=== PATIENT | female | born 1960 | race Caucasian/White ===

== ENCOUNTER → 2020-02-19 15:35 | Outpatient (BNVA) | payer BC, SELFPAY | PROVIDERS: Family Provider Internal Medicine; PCP Nurse Practitioner Family; Referring Provider Nurse Practitioner Family; Visit Provider Nurse Practitioner Family | DX: R39.15 Urgency of urination (principal); N39.0 Urinary tract infection, site not specified | CPT/HCPCS: 80053 ==

== ENCOUNTER 2020-03-05 07:29 | Outpatient (CLI) | payer BC, SELFPAY ==
--- NOTE | 2020-03-05 08:00 | US_ITS ---
WS: [id number] Bilateral renal ultrasound, 03/05/2020 Clinical Data: RECURRENT UTI Comparison: Abdomen ultrasound, 12/26/2018. Findings: The right kidney measures 10.0 cm x 4.4 cm x 3.6 cm and the left kidney is 10.5 cm x 4.1 cm x 4.5 cm. There are no cysts, masses or hydronephrosis. The renal cortical margin is normal. No renal calculi are seen. The abdominal aorta and inferior vena cava show no vascular abnormalities. The bladder was scanned and was not remarkable. US/US renal BI with bladder Impression: Negative bilateral renal ultrasound.
--- NOTE | 2020-03-05 08:45 | US_ITS ---
WS: [id number] Pelvic ultrasound, 03/05/2020 Clinical Data: RECURRENT UTI Comparison: Pelvic ultrasound, 08/03/2016. Findings: The uterus measures 6.15 cm x 3.1 cm x 2.3 cm. The endometrium is 0.3 cm. No intrauterine or abnormal intrauterine mass is seen. The ovaries were not imaged. There was no fluid in the cul-de-sac. US/US pelvic with transvaginal Impression: 1. Ovary is not imaged. 2. Negative uterus.
== END 2020-03-05 07:30 | disposition home or self-care (01) ==
LOC: US 07:30
PROVIDERS: PCP Internal Medicine; Visit Provider Nurse Practitioner Family
DX: N39.0 Urinary tract infection, site not specified (principal)
CPT/HCPCS: 76770; 76830; 76856; 76857; 81001

== ENCOUNTER 2020-04-26 16:31 | Outpatient (CLI) | payer BC, SELFPAY ==
--- NOTE | 2020-04-26 16:39 | XR_ITS ---
WS: [id number] Exam: XR cervical spine 3V* [id number] Date/Time of Exam: 04/26/2020 4:40 PM Reason For Exam: NECK PAIN Comparison 12/27/2011. No fracture or dislocation noted. Mild facet DJD at all levels. Disc spaces are relatively well maint ained. Paraspinal soft tissues appear normal. The odontoid is intact. Osteopenia. XR/XR cervical spine 3V* [id number] IMPRESSION: 1. Mild facet DJD and osteopenia. 2. No fracture or malalignment.
== END 2020-04-26 16:32 | disposition home or self-care (01) ==
LOC: RAD 16:36
PROVIDERS: PCP Internal Medicine; Visit Provider Nurse Practitioner Family
DX: R51.9 Headache, unspecified (principal); M47.812 Spondylosis without myelopathy or radiculopathy, cervical region; M85.88 Other specified disorders of bone density and structure, other site
CPT/HCPCS: 72040

== ENCOUNTER 2020-05-04 11:30 | Outpatient (CLI) | payer BC, SELFPAY ==
--- NOTE | 2020-05-04 11:32 | MM_ITS ---
WS: [id number] SCREENING DIGITAL MAMMOGRAM WITH CAD HISTORY: SCREENING COMPARISON: 11/19/2018 and 08/16/2017 Bilateral CC and MLO views submitted. Computer aided detection analyzed. Breast composition: There are scattered areas of fibroglandular density. No suspicious masses, microc alcifications or architectural distortion. MM/[place] [id number] IMPRESSION: BI-RADS: 1-Negative FOLLOW UP: 1 Year Follow-up
== END 2020-05-04 11:31 | disposition home or self-care (01) ==
LOC: RADSHAW 11:30
PROVIDERS: PCP Internal Medicine; Visit Provider Nurse Practitioner Family
DX: Z12.31 Encounter for screening mammogram for malignant neoplasm of breast (principal)
CPT/HCPCS: 77067

== ENCOUNTER → 2020-09-15 13:37 | Outpatient (BNVA) | payer OTHER, SELFPAY | PROVIDERS: PCP Internal Medicine; Visit Provider Nurse Practitioner Family | DX: N39.0 Urinary tract infection, site not specified (principal) | CPT/HCPCS: 81003 ==

== ENCOUNTER 2021-04-25 10:03 | Outpatient (CLI) | payer OTHER, SELFPAY ==
--- NOTE | 2021-04-25 10:15 | US_ITS ---
WS: [id number] ULTRASOUND ABDOMEN LIMITED CLINICAL INFORMATION: EPIGASTRIC RUQ ABD PAIN COMPARISON: None. FINDINGS: Liver Size: Normal. Craniocaudal length: 15.1 cm. Echogenicity: Normal. Surface nodularity: None. Mass (size and location): None. Bile ducts Intrahepatic ducts: Normal. Common bile duct diameter: 0.4 cm. Gallbladder Normal. Gallstones: None. Gallbladder sludge: None. Gallbladder wall thickening: None. Pericholecystic fluid: None. Sonographic Dominique sign: Absent. Pancreas Not well seen due to bowel gas Right kidney: Normal. Hydronephrosis: None. Size: 11.0 cm x 4.5 cm x 4.1 cm. Abdominal aorta and IVC Visualized portions are normal. Ascites: None. US/US abdomen limited [id number] IMPRESSION: 1. Normal liver. 2. Normal gallbladder. No cholelithiasis. 3. No hydronephrosis in right kidney. 4. No ascites.
== END 2021-04-25 10:04 | disposition home or self-care (01) ==
LOC: RAD 10:08
PROVIDERS: PCP Internal Medicine; Visit Provider Internal Medicine
DX: R10.11 Right upper quadrant pain (principal); R10.13 Epigastric pain
CPT/HCPCS: 76705; 93976

== ENCOUNTER → 2021-09-07 10:32 | Outpatient (BNVA) | payer OTHER, BC, SELFPAY | PROVIDERS: PCP Internal Medicine; Referring Provider Internal Medicine; Visit Provider Podiatrist Foot & Ankle Surgery | DX: M79.671 Pain in right foot (principal); M79.672 Pain in left foot | CPT/HCPCS: 73630 ==

== ENCOUNTER 2021-09-14 08:18 | Outpatient (CLI) | payer BC, MEDICAID, SELFPAY ==
--- NOTE | 2021-09-14 08:22 | MM_ITS ---
WS: [id number] BILATERAL 3D TOMOSYNTHESIS DIGITAL SCREENING MAMMOGRAPHY WITH CAD CLINICAL INFORMATION: SCREENING HISTORY: Screening mammogram. RIGHT breast pain. COMPARISON: May 04, 2020 TECHNIQUE: Bilateral CC and MLO views. FINDINGS: Scattered fibroglandular densities bilaterally. No suspicious focal mass, asymmetry, calcifications, or architectural distortion. No evidence of malignancy. MM/[place] [id number] IMPRESSION: BI-RADS: 1-Negative FOLLOW UP: 1 Year Follow-up Recommend return to annual screening mammography.
== END 2021-09-14 08:19 | disposition home or self-care (01) ==
LOC: RAD 08:19
PROVIDERS: PCP Internal Medicine; Visit Provider Internal Medicine
DX: Z12.31 Encounter for screening mammogram for malignant neoplasm of breast (principal)
CPT/HCPCS: 77063; 77067; 81003

== ENCOUNTER 2021-12-16 05:40 | Day surgery (SDC) | payer BC, MEDICAID, SELFPAY ==
[2021-12-15 13:00] VITALS: BMI 21.2
[2021-12-16] VITALS (7 sets, daily range): BP systolic 106–132; BP diastolic 62–75; PULSE 71–84; RESP 16–17; TEMP 36.6–37.2; O2SAT 95–99
[2021-12-16] MEDS: sodium chloride 0.9% 1,000 ML 30 ML IV (06:23)
[2021-12-16] MEDS: CELEcoxib 200 mg Capsule 400 MG PO (06:24)
--- NOTE | 2021-12-16 06:40 | P.HP_ITS ---
Providers/Chief Complaint Primary Care Provider: Melany Henao MD History of Present Illness Pleasant 61-year-old female has had progressive pain at bilateral feet right more severe than left. Bossing at the calcaneocuboid joint bilaterally is painful with and without shoes also has a fluid-filled cyst at her right foot she is wishing to have surgical excised as this causes pain when she wear shoes. She has tried different lacing configurations, different fitting and configuration of shoe styles without improvement. Has tried activity modification as well as NSAIDs without relief. Has pain on a daily basis. Patient denies any subjective nausea, vomiting, fever, chills, shortness of breath or chest pain. Review of Systems General: Reports: 10 or more systems reviewed and unremarkable except in HPI and below Const: Denies: fever(s) or chills Eyes: Denies: change in vision Card: Denies: chest pain or palpitations Resp: Denies: dyspnea or productive cough GI: Denies: abdominal pain, nausea or vomiting : Denies: flank pain Musc: Reports: extremity pain Skin/Breast: Denies: rash Neuro: Denies: numbness in extremities, sensory changes or frequent falls Psych: Denies: suicidal ideation Riccardo/Lymph: Denies: easy bruising Medications/Allergies Home Medications Medication Instructions Recorded Confirmed Last Taken Type ascorbic acid (vitamin C) 125 mg 125 mg PO DAILY 09/07/21 12/16/21 12/15/21 History chewable tablet (Vitamin C) calcium carbonate 600 mg-vitamin 1 cap PO DAILY cap 09/07/21 12/16/21 12/15/21 History D3 12.5 mcg (500 unit) capsule (Calcium 600 with Vitamin D3) melatonin 3 mg tablet (Melatin) 3 mg PO BEDTIME 09/07/21 12/16/21 12/15/21 History multivitamin with iron (Daily 1 tab PO DAILY 09/07/21 12/16/21 12/15/21 History Multiple Vitamins/Iron) omeprazole 40 mg capsule,delayed 40 mg PO DAILY 12/15/21 12/16/21 12/15/21 History release vitamins-lipotropics 200 mg-100 mg 1 tab PO DAILY 12/15/21 12/16/21 12/15/21 History tablet (Lipo-Flavonoid Plus) Allergies Allergy/AdvReac Type Severity Reaction Status Date / Time No Known Allergies Allergy Verified 12/15/21 12:57 PFSH PFSH: Medical History (Updated 12/16/21 @ 06:45 by Anderson Forbes DPM) Personal history of malignant neoplasm of cervix uteri HAD IT REMOVED Recurrent UTI Urgency incontinence Surgical History Hx of section Family History Father Cancer Diabetes Mother Stroke Social History Smoking and tobacco status: never smoked Alcohol intake: never Adopted: No Caregiver/support person: No Lives independently: Yes Marital status: Current occupational status: employed Vital Signs Vitals Signs: Last Vital Signs Temp 99 F 12/16/21 06:08 Pulse 81 12/16/21 06:08 Resp 16 12/16/21 06:08 BP 132/63 12/16/21 06:08 Pulse Ox 95 12/16/21 06:08 Weight: Weight last 48 hrs Weight 120 lb Physical Exam Narrative: EXAM NARRATIVE: Patient is alert and oriented ?3 and in no acute distress.? The following is a focused bilateral lower extremity exam. VASCULAR: Dorsalis pedis +2 bilaterally, posterior tibial arteries +2.? Capillary refill time less than 3 seconds to the distal hallux bilaterally. Calf is supple and nontender proximally and distally.? No pedal edema.? Pedal hair gr owth present. NEUROLOGICAL: Protective sensation intact to light touch. DERMATOLOGICAL: Lower extremity skin is well-hydrated, normal texture and turgor.? There are no open sores or lesions noted to the lower extremities.? No erythema or ecchymosis present to the bilateral legs and feet. MUSCULOSKELETAL: Osseous prominence at the anterior process of the calcaneus that is tender to palpation near the sinus tarsi left and right foot right more severe.? No crepitus with right subtalar joint range of motion, 20 degrees inversion and 10 degrees of eversion at the subtalar joint bilaterally.? Soft t issue mass at the dorsum of the right and left midfoot adjacent to the peroneus tertius right and left foot.? Muscle strength 5 out of 5 in all 3 planes to the bilateral foot and ankle.? Soft tissue mass transilluminates left and right foot. A&P Assessment and plan (1) Exostosis: Status: Acute (2) Right foot pain: Status: Acute (3) Ganglion of foot, right: Status: Acute Plan Clinically there is a bony exostosis at the anterior process of the calcaneus that is painful to palpation bilaterally.? She also has a soft tissue mass consistent with ganglion cyst at the extensor tendons of the left and right foot that are also painful.? Patient would like to discuss surgical excision of these masses and exostosis.? I discussed recurrence rate of both as well as recovery time.? Patient will continue with wide accommodative shoes with alternative lacing configuration to not apply pressure directly over these painful locations.? Bossing at the calcaneocuboid joint bilaterally is painful with and without shoes also has a fluid-filled cyst at her right foot she is wishing to have surgical excised as this causes pain when she wear shoes. She has tried different lacing configurations, different fitting and configuration of shoe styles without improvement. Has tried activity modification as well as NSAIDs without relief. Has pain on a daily basis. Risks and bruising and chronic swelling, reoccurrence of both soft tissue mass and exostosis/bossing. Need for further surgical invention. 12/16/2021 outpatient, MAC anesthesia excision of exostosis and soft tissue mass right foot. 30, supine, 30 minutes. Coding Level of Care Code Acute Senior Product Development Manager for Nain Mccormick Diagnoses Exostosis M89.8X9 Right foot pain M79.671 Ganglion of foot, right M67.471
--- NOTE | 2021-12-16 06:40 | W.PM.OPSUD ---
Surgery/Procedure H&P Update DATE OF PROCEDURE: December 16, 2021 DATE H&P PERFORMED: 12/16/21 CHANGES TO PREVIOUS DOCUMENTATION: None PREOP DIAGNOSIS: Calcaneal exostosis and ganglionic cyst right foot PLANNED PROCEDURE: Operation Date: 12/16/21 07:00 Proposed Procedures p Exostectomy and soft tissue mass excision right foot 25808, 77677,M79.89,M89.8x7(Right) - Anderson Forbes DPM
--- NOTE | 2021-12-16 06:50 | ANES.PREANE2 ---
Pre-Anesthetic Assessment Height/Weight: Height 1.6 m Weight 54.431 kg Temp Pulse Resp BP Pulse Ox 99 F 81 16 132/63 95 12/16/21 06:08 12/16/21 06:08 12/16/21 06:08 12/16/21 06:08 12/16/21 06:08 Preop Diagnosis: Calcaneal exostosis and ganglionic cyst right foot Operation Date: 12/16/21 07:00 Proposed Procedures p Exostectomy and soft tissue mass excision right foot 17344, 72478,M79.89,M89.8x7(Right) - Anderson Forbes DPM Familial anesthetic complications: none Was Beta Shannan taken within 24 hours: N/A Was Clonidine taken within 24 hours: N/A Last intake: Intake Last Liquid Date 12/15/21 Last Liquid Time 22:00 Last Solid Date 12/15/21 Last Solid Time 18:00 Social No alcohol and No tobacco Exam alert, oriented x 3, clear to auscultation bilaterally and regular rate & rhythm Airway Submandibular: within normal limits Cervical ROM: within normal limits Mallampati: Class II Dentition: chipped History/ROS Other Pulmonary Asthma CV/HEM None reported Urinary Tract Infection (frequent) Hepatic None reported GI Gastroesophageal Reflux Disease (controlled) Metabolic Hyperlipidemia [facility] [place] Fibromyalgia, Lower Back Pain and Osteoarthritis/DJD Neuropsych Depression Anesthetic Plan ASA status: 2 Anesthesia: MAC Risk of > 500 ml blood loss (7ml/kg in children): No Medications/Allergies Home Medications Medication Instructions Recorded Confirmed Last Taken Type ascorbic acid (vitamin C) 125 mg 125 mg PO DAILY 09/07/21 12/16/21 12/15/21 History chewable tablet (Vitamin C) calcium carbonate 600 mg-vitamin 1 cap PO DAILY cap 09/07/21 12/16/21 12/15/21 History D3 12.5 mcg (500 unit) capsule (Calcium 600 with Vitamin D3) melatonin 3 mg tablet (Melatin) 3 mg PO BEDTIME 09/07/21 12/16/21 12/15/21 History multivitamin with iron (Daily 1 tab PO DAILY 09/07/21 12/16/21 12/15/21 History Multiple Vitamins/Iron) omeprazole 40 mg capsule,delayed 40 mg PO DAILY 12/15/21 12/16/21 12/15/21 History release vitamins-lipotropics 200 mg-100 mg 1 tab PO DAILY 12/15/21 12/16/21 12/15/21 History tablet (Lipo-Flavonoid Plus) Allergies Allergy/AdvReac Type Severity Reaction Status Date / Time No Known Allergies Allergy Verified 12/15/21 12:57 Current Medications Generic Name Dose Route Start Last Admin Trade Name Cjq PRN Reason Stop Dose Admin Sodium Chloride 1,000 mls @ 30 mls/hr 12/16/21 06:00 12/16/21 06:23 Sodium Chloride 0.9% IV 12/17/21 05:59 30 mls/hr .Q24H IVONE Administration PFSH Anesthesia Medical History (Updated 12/16/21 @ 06:45 by Anderson Forbes DPM) Personal history of malignant neoplasm of cervix uteri HAD IT REMOVED Recurrent UTI Urgency incontinence Surgical History Hx of section Family History Father Cancer Diabetes Mother Stroke Social History Smoking and tobacco status: never smoked Alcohol intake: never Adopted: No Caregiver/support person: No Lives independently: Yes Marital status: Current occupational status: employed Data Anesthesia Cardiac Studies: No Data to Display
--- NOTE | 2021-12-16 06:56 | PM.OP ---
Operative Report Date of procedure: December 16, 2021 Pre-op diagnosis: Calcaneal exostosis and ganglion cyst right foot Post-op diagnosis: Calcaneal x-ray and dorsal navicular exostosis right foot Post-op findings: Exostosis calcaneal process and dorsum of the talar head Procedure done: Exostectomy right calcaneus. CPPT 30489 Exostectomy right talus. CPT 59340 Implants: 4-0 Vicryl, 4-0 nylon Specimens removed/disposition: Bony exostosis to waist Pathology: None Surgeon: Anderson Forbes D.P.M. Consumer Insights Specialist: Mac Estimated blood loss: 5 24 IV fluids: 0 Urine output: 0 Complications: None Findings: Dorsal bossing at the right anterior process of the calcaneus. Exostosis at the right dorsal navicular head. Brief History: Clinically there is a bony exostosis at the anterior process of the calcaneus that is painful to palpation bilaterally.? She also has a soft tissue mass consistent with ganglion cyst at the extensor tendons of the left and right foot that are also painful.? Patient would like to discuss surgical excision of these masses and exostosis.? I discussed recurrence rate of both as well as recovery time.? Patient will continue with wide accommodative shoes with alternative lacing configuration to not apply pressure directly over these painful locations.? Bossing at the calcaneocuboid joint bilaterally is painful with and without shoes also has a fluid-filled cyst at her right foot she is wishing to have surgical excised as this causes pain when she wear shoes.? She has tried different lacing configurations, different fitting and configuration of shoe styles without improvement.? Has tried activity modification as well as NSAIDs without relief.? Has pain on a daily basis.? Risks and bruising and chronic swelling, reoccurrence of both soft tissue mass and exostosis/bossing.? Need for further surgical invention. Procedure: Under mild sedation the patient was brought to the operating room and remained on the gurney in supine position. A timeout was performed. Anesthesia was then administered by the anesthesia service. Local anesthesia was injected by myself consisting of one-to-one mixture 1% lidocaine and 0.25% Marcaine plain in a right ankle block fashion. 20 mL used. Well-padded pneumatic tourniquet was applied to the right ankle. Right lower extremity was then scrubbed, prepped and draped utilizing normal aseptic technique and the right foot was exanguinated with an Esmarch bandage and the tourniquet inflated to 250 mmHg. Attention was directed to the dorsal lateral aspect of the right foot where a osseous prominence was palpated at the dorsal aspect of the right anterior calcaneal process. Curvilinear incision was made with a #15 blade directly over the prominence with dissection carried down through subcutaneous tissue to the layer of periosteum utilizing a combination of sharp and blunt technique. Care was taken to retract and preserve neurovascular and tendinous structures. All bleeders were ligated and cauterized as necessary. Bony exostosis was appreciated, this was transected utilizing an osteotome and a mallet with all rough edges smoothed with a hand rasp. Incision was flushed with saline solution and closed in a layered fashion. 4-0 Vicryl retinaculum and periosteum as well as subcutaneous tissue. 4-0 nylon at skin. Attention was then directed to the dorsal aspect of the right talonavicular joint where a prominence was palpated. Directly over the prominence a linear longitudinal incision was made through skin with a #15 blade with dissection carried down through subcutaneous tissue and periosteum utilizing accommodation of sharp and dull technique. Periosteal incision was made, no ganglion cyst was encountered. I appreciated a osseous exostosis at the dorsal aspect of the right talar head this was transected with a osteotome and mallet with all rough edges smoothed utilizing a hand rasp. Incision was flushed with saline solution. Capsule, periosteum and subcutaneous tissue closed with 4-0 Vicryl. Skin closed with 4-0 nylon. Incision sites were then dressed with Adaptic, sterile 4 x 4, Kerlix, Francisco Javier wrap and a postop shoe was applied. Tourniquet was deflated and a prompt hyperemic response was noted to the distal digits of the right foot. Patient tolerated the procedure and anesthesia well and was transferred to the PACU with vital signs stable and vascular status intact. Following a period of postoperative monitoring she will be discharged home may be weightbearing as tolerated with a postop shoe is to elevate her right foot while resting. Has follow-up appointment scheduled in podiatry clinic for nurse visit and her for surgical dressing change next week. She was provided my cell phone number to contact me with any postoperative questions or concerns.
[2021-12-16] MEDS: lidocaine 2% INJ 20 mL INJECTION (07:10)
--- NOTE | 2021-12-16 12:18 | ANE.PACU2 ---
Inpatient post-anesthesia follow up: Airway intact: Yes Vital signs: Temperature 98 F Pulse Rate 75 Respiratory Rate 17 Blood Pressure 106/64 Pulse Oximetry 99 Oxygen Delivery Me thod Room Air Oxygen Flow Rate Fraction of Inspir ed Oxygen Hydration adequate: Yes Nausea and vomiting: No Pain level: 2 Mental status: Baseline
== END 2021-12-16 08:35 | disposition home or self-care (01) ==
PROVIDERS: PCP Internal Medicine; Visit Provider Podiatrist Foot & Ankle Surgery
PROC: (CPT 28288; principal; 2021-12-16 07:00)
DX: M89.8X7 Other specified disorders of bone, ankle and foot (principal); M67.471 Ganglion, right ankle and foot; K21.9 Gastro-esophageal reflux disease without esophagitis; E78.5 Hyperlipidemia, unspecified; M79.7 Fibromyalgia; F32.9 Major depressive disorder, single episode, unspecified; Z85.42 Personal history of malignant neoplasm of other parts of uterus
CPT/HCPCS: 27630; 28288; J0690; J2370; J2405; J2704; J3010; J3490; J7030

== ENCOUNTER → 2021-12-28 08:33 | Outpatient (BNVA) | payer BC, MEDICAID, SELFPAY | PROVIDERS: PCP Internal Medicine; Visit Provider Podiatrist Foot & Ankle Surgery | DX: Z98.890 Other specified postprocedural states (principal) | CPT/HCPCS: 73630; 99024 ==

== ENCOUNTER → 2022-01-26 13:13 | Outpatient (BNVA) | payer BC, MEDICAID, SELFPAY | PROVIDERS: PCP Internal Medicine; Visit Provider Podiatrist Foot & Ankle Surgery | DX: Z98.890 Other specified postprocedural states (principal) | CPT/HCPCS: 99024 ==

== ENCOUNTER 2022-06-29 07:39 | Outpatient (CLI) | payer BC, MEDICAID, SELFPAY ==
--- NOTE | 2022-06-29 | US_ITS ---
WS: [id number] RIGHT UPPER QUADRANT ULTRASOUND HISTORY: GAS PAIN/EPIGASTRIC PAIN COMPARISON: 04/25/2021 Liver: 13.3 cm in length. Normal size liver. No bile duct dilatation or mass. Portal Vein: Normal hepatopetal flow with monophasic waveform. Gallbladder: Normally distended gallbladder with no stones or wall thickening. CBD: 0.2 cm Pancreas: Normal size and echogenicity. Right kidney: 10.4 cm in length. Normal size and echogenicity. No hydronephrosis or mass. Aorta and IVC: Unremarkable abdominal aorta and IVC. No ascites. US/US abdomen limited [id number] IMPRESSION: Normal RIGHT upper quadrant ultrasound.
== END 2022-06-29 07:40 | disposition home or self-care (01) ==
LOC: RAD 07:41
PROVIDERS: PCP Internal Medicine; Visit Provider Internal Medicine
DX: R14.1 Gas pain (principal); R10.13 Epigastric pain
CPT/HCPCS: 76705

== ENCOUNTER → 2022-09-13 13:55 | Outpatient (BNVA) | payer BC, MEDICAID, SELFPAY | PROVIDERS: PCP Internal Medicine; Visit Provider Urology | DX: N39.0 Urinary tract infection, site not specified (principal) | CPT/HCPCS: 81003 ==

== ENCOUNTER 2023-04-10 14:54 | Outpatient (CLI) | payer BC, MEDICAID, SELFPAY ==
--- NOTE | 2023-04-10 15:00 | MM_ITS ---
WS: [id number] BILATERAL 3D TOMOSYNTHESIS DIGITAL SCREENING MAMMOGRAPHY WITH CAD CLINICAL INFORMATION: SCREENING HISTORY: Screening mammogram. No current complaints. COMPARISON: 09/14/2021 TECHNIQUE: Bilateral CC and MLO views. FINDINGS: Scattered fibroglandular densities bilaterally. No suspicious focal mass, asymmetry, calcifications, or architectural distortion. No evidence of malignancy. IMPRESSION: MM/[place] [id number] BI-RADS: 1-Negative FOLLOW UP: 1 Year Follow-up Recommend return to annual screening mammography.
--- NOTE | 2023-04-10 15:55 | MR_ITS ---
WS: [id number] MRI BRAIN WITH HIGH-RESOLUTION IMAGING THROUGH THE INTERNAL AUDITORY CANALS WITHOUT contrast. HISTORY: DIZZINESS/VISION CHANGES COMPARISON: 07/26/2018, 11/10/2009 TECHNIQUE: Multiplanar, multisequence imaging is performed through the brain. Additional 3 mm imaging performed in multiple planes through the internal auditory canal. No acute intracranial hemorrhage, midline shift, edema or mass effect. No restricted diffusion to suggest acute ischemia. There are a few tiny foci of T2 hyperintensity in the periventricular and subcortical white matter. No progression since the prior study. Posterior fos sa is normal. Normal hippocampal formation. Ventricles and extra-axial spaces are normal. No inferior displacement of cerebellar tonsils. Clivus and pituitary gland are normal. Internal and external auditory canals: Unremarkable. Cranial nerves VII and VIII complexes: Unremarkable. No mass effect or displacement. Normal signal. Cerebellopontine angles: Normal. Paranasal sinuses: Normal. Mastoid air cells: Normal. Calvarium and scalp: Normal. Visualized [place] of [place] and dural venous sinuses demonstrate no abnormality. Dominant LEFT verteb ral artery is normal variant. Normal flow voids. IMPRESSION: 1. No evidence of restricted diffusion or acute ischemia. 2. Minimal foci of T2 hyperintensity as described above, similar to 2009 and 2018. These findings can be seen with small vessel ischemic disease and migraines. 3. Normal temporal lobes and hippocampal formations.
== END 2023-04-10 14:55 | disposition home or self-care (01) ==
LOC: RAD 14:54
PROVIDERS: PCP Internal Medicine; Visit Provider Internal Medicine
DX: Z12.31 Encounter for screening mammogram for malignant neoplasm of breast (principal); R42 Dizziness and giddiness; H53.9 Unspecified visual disturbance
CPT/HCPCS: 70551; 77063; 77067

== ENCOUNTER 2024-10-01 13:30 | Outpatient (CLI) | payer OTHER, SELFPAY ==
--- NOTE | 2024-10-01 13:32 | MM_ITS ---
WS: [id number] BILATERAL 3D TOMOSYNTHESIS DIGITAL SCREENING MAMMOGRAPHY WITH CAD CLINICAL INFORMATION: SCREENING HISTORY: Screening mammogram. No current complaints. COMPARISON: 2022 TECHNIQUE: Bilateral CC and MLO views. FINDINGS: Scattered fibroglandular densities bilaterally. No suspicious focal mass, asymmetry, calcifications, or architectural distortion. No evidence of malignancy. MM/MM scr BI tomosynthesis [id number] IMPRESSION: DENSITY: There are scattered areas of fibroglandular density. BI-RADS: 1 - Negative. FOLLOW UP: 1 Year Follow-up Recommend return to annual screening mammography.
== END 2024-10-01 13:31 | disposition home or self-care (01) ==
PROVIDERS: PCP Internal Medicine; Visit Provider Internal Medicine
DX: Z12.31 Encounter for screening mammogram for malignant neoplasm of breast (principal); R92.323 Mammographic fibroglandular density, bilateral breasts
CPT/HCPCS: 77063; 77067

== ENCOUNTER 2024-11-27 12:39 | Emergency (ER) | payer OTHER, SELFPAY ==
[2024-11-27 12:40] VITALS: BP 115/73; PULSE 99; RESP 16; TEMP 36.7; O2SAT 97
--- NOTE | 2024-11-27 12:46 | ECG_ITS ---
[facility] Test Date: 2024-11-27 Pat Name: Annalise Neves Department: Room: Gender: Female Ticket Agent: : 1960 Requested By: Jim Valles Order Number: [id number] Zander MD: Jose M Hauser M.D. Measurements Intervals [place] Rate: 90 P: 67 PA: 152 QRS: 4 QRSD: 84 T: 42 QT: 329 QTc: 404 Interpretive Statements SINUS RHYTHM LOW QRS VOLTAGE IN PRECORDIAL LEADS [QRS DEFLECTION < 1.0 mV IN CHEST LEADS] No previous ECG available for comparison Electronically Signed On 11-27-2024 17:44:52 CDT by Jose M Hauser M.D. [id number]
--- NOTE | 2024-11-27 13:27 | ED_ITS ---
HPI - Abdominal Pain 2 General: Chief Complaint: Abdominal Pain Stated Complaint: gall bladder attack Time Seen by Provider: 11/27/24 13:25 History of Present Illness: 64-year-old female presents emergency ro om with complaint of intermittent abdominal pain. States she has had this intermittently for some time she says she is lost 10 pounds in 6 days. No dysuria urgency or frequency no vomiting. Her only pain at this time is in her low back. Evidently she had seen her primary care doctor and is scheduled for gallbladder ultrasound she denies any acholic stools no vomiting no diarrhea. Associated Symptoms: Reports nausea; Denies chills, dysuria, fever(s), hematochezia, hematemesis, melena and vomiting Related Data Home Medications ?Medication ?Instructions ?Recorded ?Confirmed ascorbic acid (vitamin C) 125 mg 125 mg PO DAILY 09/0711/27/24 chewable tablet (Vitamin C) calcium 600 mg (as 1 cap PO DAILY 09/07/2111/09 carbonate)-vitamin D3 12.5 mcg (500 unit) capsule (Calcium with Vit D3) vitamins-lipotropics 200 mg-100 mg 1 tab PO DAILY 12/3011/27/24 tablet (Lipo-Flavonoid Plus) melatonin 3 mg tablet 3 mg PO DAILY 11/27/2411/27 meloxicam 15 mg tablet 15 mg PO DAILY 11/27/2411/09 [id number] 8 mg-folic 400 1 tab PO DAILY 11/2711/27/24 mcg-K 50 mcg-lutein 300 mcg tablet (Multivitamin Women 50 Plus) Previous Rx's ?Medication ?Instructions ?Recorded diclofenac sodium 75 mg 75 mg PO Q12H PRN pain #20 t abs 11/27/24 tablet,delayed release Allergies Allergy/AdvReac Type Severity Reaction Status Date / Time No Known Allergies Allergy Verified 09/13/22 14:02 Review of Systems 2 Const: Denies: fever(s) or chills Card: Denies: chest pain Resp: Denies: dyspnea GI: Reports: abdominal pain and nausea; Denies: vomiting, hematemesis, hematochezia or melena : Reports: pelvic pain; Denies: dysuria, urinary frequency or urinary urgency Musc: Denies: neck pain or back pain Skin/Breast: Denies: rash [facility] 2 PFSH: Medical History Urgency incontinence Personal history of malignant neoplasm of cervix uteri HAD IT REMOVED Recurrent UTI Surgical History Hx of section Family History Father , AT AGE 79 Cancer Diabetes Stroke Mother , AT AGE 78 Stroke Social History Smoking and tobacco/nicotine status: never used tobacco/nicotine Alcohol intake: never Substance/Drug Use: never Adopted: No Caregiver/support person: No Lives independently: Yes Marital status: Current occupational status: employed Physical Exam 2 Const: COMMON NORMALS: no acute distress GENERAL APPEARANCE: cooperative and comfortable ORIENTATION/CONSCIOUSNESS: Yes awake, Yes oriented to person, Yes oriented to place and Yes oriented to time HENMT: COMMON NORMALS: normocephalic, atraumatic and hearing grossly normal bilaterally HEAD & SCALP: normocephalic and atraumatic Resp: COMMON NORMALS: normal respiratory effort, No retractions, No use of accessory muscles and clear to auscultation bilaterally AUSCULTATION: clear to auscultation bilaterally Cardio: COMMON NORMALS: regular rate, regular rhythm and No murmurs present (Cardio) RATE: regular rate RHYTHM: regular rhythm GI: COMMON NORMALS: Soft to palpation and No hepatosplenomegaly present A USCULTATION: Yes normoactive bowel sounds PALPATION: Yes Soft to palpation, No Tenderness to palpation present (GI), No Guarding due to palpation present (GI) and Yes No hepatosplenomegaly present Extremity: COMMON NORMALS: normal to inspection, capillary refill normal, no clubbing, cyanosis or edema, no calf tenderness and no pedal edema Neuro: SENSORIUM/ORIENTATION: Yes oriented to person, Yes oriented to place and Yes oriented to time Skin: COMMON NORMALS: no rashes or lesions noted GENERAL SKIN EXAM: no rashes or lesions noted Course 2 Vital Signs: Vital signs: Vital Signs Temperature 98.1 F 11/27/24 12:40 Pulse Rate 62 11/27/24 16:34 Respiratory Rate 16 11/27/24 14:11 Blood Pressure 130/60 11/27/24 16:34 Pulse Oximetry 98 11/27/24 16:34 Oxygen Delivery Me thod Room Air 11/27/24 16:00 MDM - Abdominal Pain Medical Decision Making Abdominal exam benign CT shows pelvic congestion with pelvic varices around the ovaries but no other acute pathology liver enzymes normal exam not suggestive of gallbladder disease nor is her history. Will set her up for an outpatient pelvic ultrasound and follow-up with gynecology switch to diclofenac to use as needed. As to her report of 10 pounds of weight loss in 6 days suspect that is more fluid related rather than actual true body weight loss in such a short period of time. Discussed this with her. Medical Records I reviewed the patient's medical records. Lab Data I reviewed the patient's lab results. 11/27/24 13:52 11/27/24 13:52 Labs/Radiology: Radiology Impressions Abdomen/Pelvis CT 11/27/24 14:00 IMPRESSION: Prominent ovarian vein suggesting the possibility of pelvic congestion syndrome. Otherwise normal study. Laboratory Results WBC 5.43 10^3/uL (3.29-11.43) 11/27/24 13:52 RBC 3.37 10^6/uL (3.85-5.65) L 11/27/24 13:52 Hgb 11.20 g/dL (11.27-16.99) L 11/27/24 13:52 Hct 33.5 % (36-47) L 11/27/24 13:52 MCV 99.4 fl (85-98) H 11/27/24 13:52 MCH 33.2 pg (27-33) H 11/27/24 13:52 MCHC 33.4 g/dL (30-55) 11/27/24 13:52 RDW 12.4 % (12.1-15.1) 11/27/24 13:52 Plt Count 209 10^3/cmm (157-399) 11/27/24 13:52 MPV 9.2 fL (7.4-10.4) 11/27/24 13:52 Neut % (Auto) 58.0 % 11/27/24 13:52 Lymph % (Auto) 28.2 % 11/27/24 13:52 Lander % (Auto) 11.2 % 11/27/24 13:52 Eos % (Auto) 1.3 % 11/27/24 13:52 Baso % (Auto) 0.9 % 11/27/24 13:52 Neut # (Auto) 3.15 10^3/uL (1.8-7.7) 11/27/24 13:52 Lymph # (Auto) 1.5 10^3/uL (0.8-4.8) 11/27/24 13:52 Lander # (Auto) 0.6 10^3/uL (0.2-0.9) 11/27/24 13:52 Eos # (Auto) 0.1 10^3/uL (0.0-0.8) 11/27/24 13:52 Baso # (Auto) 0.1 10^3/uL (0.0-0.1) 11/27/24 13:52 Nucleated RBC % (auto) 0 % 11/27/24 13:52 Nucleated RBCs # 0.0 /100WBC 11/27/24 13:52 Sodium 144 mmol/L (136-145) 11/27/24 13:52 Potassium 4.0 mmol/L (3.5-5.1) 11/27/24 13:52 Chloride 106 mmol/L (98-107) 11/27/24 13:52 Carbon Dioxide 27 mmol/L (22-29) 11/27/24 13:52 Anion Gap 15.0 (5-19) 11/27/24 13:52 BUN 17 mg/dL (8-23) 11/27/24 13:52 Creatinine 1.0 mg/dL (0.5-0.9) H 11/27/24 13:52 GFR Calculation 56.0 mL/min (90-130) L 11/27/24 13:52 Glucose 96 mg/dL (65-115) 11/27/24 13:52 Calculated Osmolality 299 mOsm/kg (285-295) H 11/27/24 13:52 Calcium 9.2 mg/dL (8.5-10.5) 11/27/24 13:52 Total Bilirubin 0.2 mg/dL (0.15-1.2) 11/27/24 13:52 AST 21 U/L (0-32) 11/27/24 13:52 ALT 15 U/L (0-33) 11/27/24 13:52 Alkaline Phosphatase 80 U/L (35-105) 11/27/24 13:52 Total Protein 6.9 g/dL (6.6-8.7) 11/27/24 13:52 Albumin 4.2 g/dL (3.5-5.2) 11/27/24 13:52 Globulin 2.7 g/dL (1.3-4.6) 11/27/24 13:52 Lipase 56 U/L (13-60) 11/27/24 13:52 Urine Color Yellow (Yellow) 11/27/24 14:20 Urine Appearance Turbid (CLEAR) A 11/27/24 14:20 Urine pH 7.0 (5-7) 11/27/24 14:20 Ur Specific [place] 1.019 (1.005-1.030) 11/27/24 14:20 Urine Protein Negative (Negative) 11/27/24 14:20 Urine Glucose (UA) Negative (Normal) 11/27/24 14:20 Urine Ketones Negative (Negative) 11/27/24 14:20 Urine Blood Negative (Negative) 11/27/24 14:20 Urine Nitrate Negative (Negative) 11/27/24 14:20 Urine Bilirubin Negative (Negative) 11/27/24 14:20 Urine Urobilinogen 1.0 mg/dL (Negative) 11/27/24 14:20 Ur Leukocyte Esterase Negative (Negative) 11/27/24 14:20 Urine RBC 6-10 /hpf (0-2) 11/27/24 14:20 Urine WBC 0-5 /hpf (0-5) 11/27/24 14:20 Ur Squamous Epith Cells 0-5 /hpf (0-5) 11/27/24 14:20 Amorphous Sediment Not Reportable 11/27/24 14:20 Urine Bacteria None seen /hpf (NONE) 11/27/24 14:20 Hyaline Casts 0-4 /lpf H 11/27/24 14:20 All radiology interpretation(s) finalized by discharge Discharge Plan Discharge Patient Disposition: Home Clinical Impression: Varicosities of pelvis Condition: Stable Prescriptions: New diclofenac sodium 75 mg tablet,delayed release (DR/EC) 75 mg PO Q12H PRN (Reason: pain) Qty: 20 0RF No Action calcium carbonate-vitamin D3 [Calcium 600 with Vitamin D3] 600 mg-12.5 mcg (500 unit) capsule 1 cap PO DAILY ascorbic acid (vitamin C) [Vitamin C] 125 mg tablet,chewable 125 mg PO DAILY Lipo-Flavonoid Plus 200-100 mg tablet 1 tab PO DAILY meloxicam 15 mg tablet 15 mg PO DAILY melatonin 3 mg Tablet 3 mg PO DAILY Multivitamin Women 50 Plus 8 mg iron-400 mcg-50 mcg Tablet 1 tab PO DAILY Discharge Orders: Discharge ED (Routine); Ordered 11/27/24 Ordered By: Jim Galeana Referrals: Melany Henao MD [Primary Care Provider, Internal Medicine] Discharge Diet: Usual diet Discharge Activity: Increase activity as tolerated Patient Instructions: Opioid Safety, Pain Management Activity Restrictions/Additional Instructions: Thank you for choosing [facility] for your healthcare needs today. It is very important that you follow up as instructed or that you return to the Emergency Department should you have concerns or if your condition changes or worsens in any way. You are seen today with complaints of abdominal discomfort and congestion. CT did not show any significant abnormalities your liver enzymes and kidney functions were normal. There was quite a bit of pelvic varicosities around your ovary. This should be further evaluated with a pelvic ultrasound. Will set this up as an outpatient and have you follow-up with gynecology. Print Language: Panamanian Coding Level of Care Code ED Experimental Worker for Nain Mccormick
--- NOTE | 2024-11-27 14:00 | CTR_ITS ---
PROCEDURE INFORMATION: Exam: CT Abdomen And Pelvis With Contrast Exam date and time: 11/27/2024 3:00 PM Age: 64 years old Clinical indication: Abdominal pain; Generalized; Additional info: Abd pain TECHNIQUE: Imaging protocol: Computed tomography of the abdomen and pelvis with contrast. Radiation optimization: All CT scans at this facility use at least one of these dose optimization techniques: automated exposure control; mA and/or kV adjustment per patient size (includes targeted exams where dose is matched to clinical indication); or iterative reconstruction. Contrast material: OMNIPAQUE 350; Contrast volume: 100 ml; Contrast route: INTRAVENOUS (IV); COMPARISON: US abdomen limited [id number] 06/29/2022 7:58 AM RADIATION DOSE METRICS: Total DLP (mGy-cm): 317.77 FINDINGS: Lungs: Lung bases are clear. No pleural effusion. Liver: Normal. No mass. Gallbladder and biliary ducts: Normal. No calcified stones. No ductal dilation. Pancreas: Normal. No ductal dilation. Spleen: Normal. No splenomegaly. Adrenal glands: Normal. No mass. Kidneys and ureters: Normal. No hydronephrosis. Stomach and bowel: Unremarkable. No obstruction. No mucosal thickening. Appendix: The appendix is clearly identified and is unremarkable. Intraperitoneal space: Unremarkable. No free air. No significant fluid collection. Vasculature: The ovarian veins are prominent bilaterally and numerous varicosities are noted in the pelvis. Lymph nodes: Unremarkable. No enlarged lymph nodes. Urinary bladder: Unremarkable as visualized. Reproductive: Unremarkable as visualized. Bones/joints: Unremarkable. No acute fracture. Soft tissues: Unremarkable. CT/CT abdomen pelvis w con* [id number] IMPRESSION: Prominent ovarian vein suggesting the possibility of pelvic congestion syndrome. Otherwise normal study.
[2024-11-27 14:06] LABS: Basophils # 0.1 10^3/uL (0.0-0.1); Basophils % 0.9 %; Eosinophils # 0.1 10^3/uL (0.0-0.8); Eosinophils % 1.3 %; Hematocrit 33.5 % (36-47); Lymphocytes # 1.5 10^3/uL (0.8-4.8); Lymphocytes % 28.2 %; Mean Corpuscular HGB Conc 33.4 g/dL (30-55); Mean Corpuscular Hemoglobin 33.2 pg (27-33); Mean Corpuscular Volume 99.4 fl (85-98); Mean Platelet Volume 9.2 fL (7.4-10.4); Monocytes # 0.6 10^3/uL (0.2-0.9); Monocytes % 11.2 %; Neutrophils # 3.15 10^3/uL (1.8-7.7); Nucleated Red Blood Cells % 0 %; Platelet Count 209 10^3/cmm (157-399); Red Blood Count 3.37 10^6/uL (3.85-5.65); Red Cell Distribution Width 12.4 % (12.1-15.1); White Blood Count 5.43 10^3/uL (3.29-11.43)
--- NOTE | 2024-11-27 14:09 | PC.NURSE ---
this nurse asked pt for urine sample, pt states she can't go right now but will try in a little bit.
[2024-11-27 14:11] VITALS: BP 109/61; PULSE 83; RESP 16; O2SAT 91
[2024-11-27 14:27] LABS: Alanine Aminotransferase 15 U/L (0-33); Albumin Level 4.2 g/dL (3.5-5.2); Alkaline Phosphatase 80 U/L (35-105); Aspartate Amino Transferase 21 U/L (0-32); Blood Urea Nitrogen 17 mg/dL (8-23); Calcium 9.2 mg/dL (8.5-10.5); Carbon Dioxide 27 mmol/L (22-29); Chloride 106 mmol/L (98-107); Creatinine Clr Calc Pharmacy 45.8975; Globulin 2.7 g/dL (1.3-4.6); Glucose 96 mg/dL (65-115); Lipase 56 U/L (13-60); Osmolality Calculated 299 mOsm/kg (285-295); Sodium 144 mmol/L (136-145); Total Bilirubin 0.2 mg/dL (0.15-1.2); Total Protein 6.9 g/dL (6.6-8.7)
[2024-11-27 14:36] LABS: Bilirubin Urine Negative (Negative); Blood Urine Negative (Negative); Glucose Urine UA Negative (Normal); Ketones Urine Negative (Negative); Leukocyte Esterase Urine Negative (Negative); Nitrate Urine Negative (Negative); Protein Urine Negative (Negative); Specific Gravity, Urine 1.019 (1.005-1.030); Urine Appearance Turbid (CLEAR); Urine Color Yellow (Yellow)
[2024-11-27 14:38] LABS: Add Urine Microscopic? YES; Bacteria Urine None Seen /hpf; Hyaline Casts Urine 0-4 /lpf; Squamous Epithelial Cell Urine 0-5 /hpf (0-5); WBC Urine 0-5 /hpf (0-5)
[2024-11-27 15:00] VITALS: BP 111/65; PULSE 79; O2SAT 98
[2024-11-27] MEDS: iohexol 350 mg/mL 500 mL Btl (per mL) IV (15:01)
[2024-11-27 15:09] LABS: Add Urine Culture? No
[2024-11-27 15:30] VITALS: BP 90/60; PULSE 60; O2SAT 98
[2024-11-27 16:00] VITALS: BP 110/58; PULSE 61; O2SAT 100
--- NOTE | 2024-11-27 16:25 | DCPLANNER ---
messaged [facility] for er f/u
[2024-11-27 16:34] VITALS: BP 130/60; PULSE 62; O2SAT 98
== END 2024-11-27 16:35 | disposition home or self-care (01) ==
PROVIDERS: Emergency Provider Family Medicine; PCP Internal Medicine
DX: I86.2 Pelvic varices (principal)
CPT/HCPCS: 36415; 74177; 80053; 81001; 83690; 85025; 93005; 99285

== ENCOUNTER 2024-12-01 09:15 | Outpatient (CLI) | payer OTHER, SELFPAY ==
--- NOTE | 2024-12-01 09:24 | US_ITS ---
WS: [id number] RIGHT UPPER QUADRANT ULTRASOUND HISTORY: RUQ ABDOMINAL PAIN COMPARISON: 06/29/2022 Liver: 13.5 cm in length. Normal size liver and echogenicity. No bile duct dilatation or mass. Portal Vein: Normal hepatopetal flow with monophasic waveform. Gallbladder: Normally distended gallbladder with no stones or wall thickening. CBD: 0.2 cm Pancreas: Normal size and echogenicity. Right kidney: 9.5 cm in length. Normal size and echogenicity. No hydronephrosis or mass. Aorta and IVC: Unremarkable abdominal aorta and IVC. No ascites. US/US abdomen limited [id number] IMPRESSION: Normal right upper quadrant ultrasound.
== END 2024-12-01 09:16 | disposition home or self-care (01) ==
PROVIDERS: PCP Internal Medicine; Visit Provider Nurse Practitioner Family
DX: R10.11 Right upper quadrant pain (principal)
CPT/HCPCS: 76705

== ENCOUNTER 2024-12-08 06:31 | Outpatient (CLI) | payer OTHER, SELFPAY ==
--- NOTE | 2024-12-08 06:37 | USR_ITS ---
PROCEDURE INFORMATION: Exam: US Pelvis, Complete, Non-Obstetric Exam date and time: 12/08/2024 6:41 AM Age: 64 years old Clinical indication: Pelvic pain; Additional info: Pain and varicocities TECHNIQUE: Imaging protocol: Transabdominal pelvic nonobstetric ultrasound. Complete exam. Real time ultrasound with image documentation. COMPARISON: US abdomen limited [id number] 12/01/2024 9:31 AM FINDINGS: Uterus: The uterus measures 6.6 x 3.0 x 4.7 cm. Midline endometrial echo measures 3 mm. Right ovary/adnexa: The right ovary was not visualized on exam. Left ovary/adnexa: The left ovary measures 2.2 x 1.9 x 1.5 cm. Normal color Doppler vascularity in the left ovary. Intraperitoneal space: No intraperitoneal fluid. Urinary bladder: Visualized portions appear unremarkable. US/US pelvic complete* [id number] IMPRESSION: The right ovary was not visualized on examination otherwise unremarkable transabdominal pelvic ultrasound.
== END 2024-12-08 06:32 | disposition home or self-care (01) ==
PROVIDERS: PCP Internal Medicine; Visit Provider Family Medicine
DX: I86.2 Pelvic varices (principal); R10.2 Pelvic and perineal pain
CPT/HCPCS: 76856